=== PATIENT | male | born 2000 | race Caucasian/White ===

== ENCOUNTER 2025-02-13 23:50 | Emergency (ER) | payer SELFPAY ==
[~2025-02-13] VITALS: Ht 167.6 cm; Wt 59.0 kg
[2025-02-13] MEDS ORDERED: ONDANSETRON 4 MG/2 ML VIAL ONE (23:58)
[2025-02-14] MEDS: ONDANSETRON 4 MG/2 ML VIAL IV ONE (00:13)
[2025-02-14] MEDS: IV NORMAL SALINE 1000 ML BAG IV ONE ×3 (00:13→02:28)
[2025-02-14 00:17] LABS: BASOPHILS % (AUTO) 0.5 % (0.0-2.0); EOSINOPHILS # (AUTO) 0.2 K/uL (0.0-0.7); EOSINOPHILS % (AUTO) 2.5 % (0.0-7.0); HEMATOCRIT 42.9 % (36.7-47.1); HEMOGLOBIN 14.9 g/dL (12.5-16.3); LYMPHOCYTES # (AUTO) 2.8 K/uL (0.8-4.8); LYMPHOCYTES % (AUTO) 31.7 % (20.5-51.5); MEAN CORPUSCULAR HEMOGLOBIN 31.7 uug (23.8-33.4); MEAN CORPUSCULAR HGB CONC 35 g/dL (32.5-36.3); MEAN CORPUSCULAR VOLUME 91.5 fL (73.0-96.2); MONOCYTES # (AUTO) 0.4 K/uL (0.1-1.30); MONOCYTES % (AUTO) 4.2 % (0.0-11.0); NEUTROPHILS # (AUTO) 5.3 K/uL (1.8-8.9); NEUTROPHILS % (AUTO) 61.1 % (38.5-71.5); PLATELET COUNT (AUTO) 330 K/uL (152-348); RED BLOOD CELL COUNT(AUTO) 4.69 MIL/uL (4.06-5.63); RED CELL DISTRIBUTION WIDTH 12.5 % (12.1-16.2); WHITE BLOOD COUNT (AUTO) 8.7 K/uL (3.6-10.2)
[2025-02-14 00:20] LABS: DIFFERENTIAL COMMENT 1
[2025-02-14 00:22] LABS: CALCIUM 7.9 mg/dL (8.5-10.1); CREATININE 0.9 mg/dL (0.6-1.3); POTASSIUM 3.5 mmol/L (3.5-5.1)
[2025-02-14 00:28] LABS: ALBUMIN 3.9 g/dL (3.4-5.0); BILIRUBIN,DIRECT 0.1 mg/dL (0.0-0.2); BILIRUBIN,TOTAL 0.4 mg/dL (0.2-1.0); TOTAL PROTEIN, SERUM 7.7 g/dL (6.4-8.2)
[2025-02-14] MEDS ORDERED: ONDA4TAB11 PO (01:01)
[2025-02-14 03:17] VITALS: BP 119/60; O2SAT 99
== END 2025-02-14 03:12 | disposition home or self-care (01) ==
LOC: ER 23:50
DX: F10.129 Alcohol abuse with intoxication, unspecified (principal); R41.0 Disorientation, unspecified; R07.9 Chest pain, unspecified; Z88.0 Allergy status to penicillin; Z87.2 Personal history of diseases of the skin and subcutaneous tissue; Z91.040 Latex allergy status; Y90.8 Blood alcohol level of 240 mg/100 ml or more
CPT/HCPCS: 36415; 93005; 99285; 80076; 80048; 83690; 85025; 71045; 70450; 72125; 96361; 96374; 80320; J2405; J7040 ×3; A4606; A4663; G0480